=== PATIENT | female | born 1975 | race Caucasian/White ===

== ENCOUNTER 2021-06-05 10:10 | Inpatient (IN) | payer OTHER ==
[2021-06-05 10:58] LABS: Glucose,Whole Blood 345 mg/dL (75-99)
[2021-06-05] MEDS ORDERED: SODIUM CHLORIDE 0.9% 1,000 ML IV STA ×2 (11:15)
--- NOTE | 2021-06-05 11:18 | ED ---
General Adult HPI - General Chief complaint: Upper Respiratory Infection Stated complaint: High Blood Sugar,Fatigue Time Seen by Provider: 06/05/21 10:43 Source: patient Mode of arrival: ambulatory Limitations: no limitations - History of Present Illness Initial comments: 46-year-old female presents to the emergency room for a chief complaint of COVID-19 symptoms. Patient states 4-5 days ago she started to develop symptoms of upper respiratory illness. States she is coughing and congested, has body aches headaches and fevers. Patient states she went to urgent care today after testing positive at home for COVID-19. Patient has a PCR pending from urgent care but had her blood sugar checked and it was 350. Patient states she does not have a history of diabetes but has not seen a doctor in over 10 years. Patient has no other complaints at this time including shortness of breath, chest pain, abdominal pain, nausea or vomiting, or visual changes. - Related Data Home Medications Medication Instructions Recorded Confirmed No Known Home Medications 06/05/21 06/05/21 Allergies Allergy/AdvReac Type Severity Reaction Status Date / Time codeine Allergy Nausea Verified 06/05/21 12:57 Review of Systems ROS Statement: Those systems with pertinent positive or pertinent negative responses have been documented in the HPI. ROS Other: All systems not noted in ROS Statement are negative. Past Medical History Past Medical History: No Reported History History of Any Multi-Drug Resistant Organisms: None Reported Past Surgical History: No Surgical Hx Reported Past Psychological History: No Psychological Hx Reported Smoking Status: Never smoker Past Alcohol Use History: None Reported Past Drug Use History: None Reported General Exam Limitations: no limitations General appearance: alert, in no apparent distress Head exam: Present: atraumatic, normocephalic Eye exam: Present: normal appearance, PERRL, EOMI. Absent: scleral icterus, conjunctival injection ENT exam: Present: normal exam, mucous membranes moist Neck exam: Present: normal inspection, full ROM. Absent: tenderness Respiratory exam: Present: normal lung sounds bilaterally. Absent: respiratory distress, wheezes Cardiovascular Exam: Present: regular rate, normal rhythm, normal heart sounds GI/Abdominal exam: Present: soft, normal bowel sounds. Absent: distended, tenderness Neurological exam: Present: alert Course Vital Signs 06/05/21 06/05/21 10:32 12:55 Temperature 100.4 F H 100.5 F H Pulse Rate 95 Respiratory 22 Rate Blood Pressure 98/60 O2 Sat by Pulse 97 Oximetry Medical Decision Making - Medical Decision Making Vitals are stable. Patient is well-appearing. COVID-19 is positive. Patient given antibody infusion. CMP however does reveal a glucose of 346 and an anion gap of 16. Urinalysis has 3+ ketone's and 4+ glucose. Positive acetone is noted. Case was discussed with Dr. Mcduffie, recommends sliding scale instead of insulin drip. She'll be hydrated and admitted. - Lab Data Result diagrams: 06/05/21 11:20 06/05/21 11:20 Lab Results 06/05/21 06/05/21 06/05/21 Range/Units 10:56 11:20 11:20 WBC 3.6 L (3.8-10.6) k/uL RBC 5.10 (3.80-5.40) m/uL Hgb 15.3 (11.4-16.0) gm/dL Hct 43.8 (34.0-46.0) % MCV 85.8 (80.0-100.0) fL MCH 30.1 (25.0-35.0) pg MCHC 35.0 (31.0-37.0) g/dL RDW 12.4 (11.5-15.5) % Plt Count 147 L (150-450) k/uL MPV 8.0 Neutrophils % 78 % Lymphocytes % 14 % Monocytes % 5 % Eosinophils % 1 % Basophils % 0 % Neutrophils # 2.8 (1.3-7.7) k/uL Lymphocytes # 0.5 L (1.0-4.8) k/uL Monocytes # 0.2 (0-1.0) k/uL Eosinophils # 0.0 (0-0.7) k/uL Basophils # 0.0 (0-0.2) k/uL Sodium (137-145) mmol/L Potassium (3.5-5.1) mmol/L Chloride (98-107) mmol/L Carbon Dioxide (22-30) mmol/L Anion Gap mmol/L BUN (7-17) mg/dL Creatinine (0.52-1.04) mg/dL Est GFR (CKD-EPI)AfAm (>60 ml/min/1.73 sqM) Est GFR (CKD-EPI)NonAf (>60 ml/min/1.73 sqM) Glucose (74-99) mg/dL POC Glucose (mg/dL) 345 H (75-99) mg/dL POC Glu Solar Technician ID Naomie Agrawal Calcium (8.4-10.2) mg/dL Total Bilirubin (0.2-1.3) mg/dL AST (14-36) U/L ALT (4-34) U/L Alkaline Phosphatase (38-126) U/L Total Protein (6.3-8.2) g/dL Albumin (3.5-5.0) g/dL Urine Color Yellow Urine Appearance Clear (Clear) Urine pH 5.5 (5.0-8.0) Ur Specific [place] 1.040 H (1.001-1.035) Urine Protein Trace H (Negative) Urine Glucose (UA) 4+ H (Negative) Urine Ketones 3+ H (Negative) Urine Blood Negative (Negative) Urine Nitrite Negative (Negative) Urine Bilirubin Negative (Negative) Urine Urobilinogen 2.0 (<2.0) mg/dL Ur Leukocyte Esterase Negative (Negative) Acetone, Qual (Negative) Coronavirus (PCR) (Not Detectd) 06/05/21 06/05/21 Range/Units 11:20 11:20 WBC (3.8-10.6) k/uL RBC (3.80-5.40) m/uL Hgb (11.4-16.0) gm/dL Hct (34.0-46.0) % MCV (80.0-100.0) fL MCH (25.0-35.0) pg MCHC (31.0-37.0) g/dL RDW (11.5-15.5) % Plt Count (150-450) k/uL MPV Neutrophils % % Lymphocytes % % Monocytes % % Eosinophils % % Basophils % % Neutrophils # (1.3-7.7) k/uL Lymphocytes # (1.0-4.8) k/uL Monocytes # (0-1.0) k/uL Eosinophils # (0-0.7) k/uL Basophils # (0-0.2) k/uL Sodium 130 L (137-145) mmol/L Potassium 3.6 (3.5-5.1) mmol/L Chloride 94 L (98-107) mmol/L Carbon Dioxide 20 L (22-30) mmol/L Anion Gap 16 mmol/L BUN 11 (7-17) mg/dL Creatinine 0.50 L (0.52-1.04) mg/dL Est GFR (CKD-EPI)AfAm >90 (>60 ml/min/1.73 sqM) Est GFR (CKD-EPI)NonAf >90 (>60 ml/min/1.73 sqM) Glucose 346 H (74-99) mg/dL POC Glucose (mg/dL) (75-99) mg/dL POC Glu Solar Technician ID Calcium 8.7 (8.4-10.2) mg/dL Total Bilirubin 0.9 (0.2-1.3) mg/dL AST 31 (14-36) U/L ALT 23 (4-34) U/L Alkaline Phosphatase 83 (38-126) U/L Total Protein 7.7 (6.3-8.2) g/dL Albumin 4.3 (3.5-5.0) g/dL Urine Color Urine Appearance (Clear) Urine pH (5.0-8.0) Ur Specific [place] (1.001-1.035) Urine Protein (Negative) Urine Glucose (UA) (Negative) Urine Ketones (Negative) Urine Blood (Negative) Urine Nitrite (Negative) Urine Bilirubin (Negative) Urine Urobilinogen (<2.0) mg/dL Ur Leukocyte Esterase (Negative) Acetone, Qual Positive (Negative) Coronavirus (PCR) Detected A (Not Detectd) Disposition Clinical Impression: DKA (diabetic ketoacidosis), COVID-19 Disposition: ADMITTED IP TO THIS HOSP Is patient prescribed a controlled substance at d/c from ED?: No Referrals: None,Stated [Primary Care Provider] - 1-2 days Time of Disposition: 13:26
[2021-06-05 11:30] LABS: Basophils % (A) 0 %; Eosinophils % (A) 1 %; HCT 43.8 % (34.0-46.0); HGB 15.3 gm/dL (11.4-16.0); Lymphocytes # (A) 0.5 k/uL (1.0-4.8); Lymphocytes % (A) 14 %; MCH 30.1 pg (25.0-35.0); MCV 85.8 fL (80.0-100.0); Monocytes # (A) 0.2 k/uL (0-1.0); Monocytes % (A) 5 %; Neutrophils # (A) 2.8 k/uL (1.3-7.7); Neutrophils % (A) 78 %; Platelet Count 147 k/uL (150-450); RDW 12.4 % (11.5-15.5); WBC 3.6 k/uL (3.8-10.6)
[2021-06-05 11:36] LABS: Appearance,Urine Clear (Clear); Bilirubin,Urine Negative (Negative); Blood,Urine Negative (Negative); Color,Urine Yellow; Glucose,Urine (UA) 4+ (Negative); Leukocyte Esterase,Urine Negative (Negative); Nitrite,Urine Negative (Negative); PH, Urine 5.5 (5.0-8.0); Protein,Urine Trace (Negative)
[2021-06-05 11:40] LABS: ALT 23 U/L (4-34); AST 31 U/L (14-36); African American GFR (CKD) >90 (>60 ml/min/1.73 sqM); Albumin 4.3 g/dL (3.5-5.0); Alkaline Phosphatase 83 U/L (38-126); Anion Gap 16 mmol/L; Blood Urea Nitrogen 11 mg/dL (7-17); Calcium 8.7 mg/dL (8.4-10.2); Carbon Dioxide 20 mmol/L (22-30); Chloride 94 mmol/L (98-107); Glucose 346 mg/dL (74-99); Non-African American GFR(CKD) >90 (>60 ml/min/1.73 sqM); Sodium 130 mmol/L (137-145); Total Bilirubin 0.9 mg/dL (0.2-1.3); Total Protein 7.7 g/dL (6.3-8.2)
[2021-06-05 11:42] LABS: Potassium 3.6 mmol/L (3.5-5.1)
[2021-06-05 11:54] LABS: Ketones,Urine 3+ (Negative)
[2021-06-05] MEDS ORDERED: SODIUM CHLORIDE 0.9% 50 ML IVPB ONE (12:00)
[2021-06-05] MEDS ORDERED: CASIRIVIMAB (REGN10933) (EUA) 600 MG, IMDEVIMAB (REGN10987) (EUA) 600 MG in SODIUM CHLO... IVPB ONE (12:00)
[2021-06-05] MEDS ORDERED: INSULIN ASPART (NovoLOG) 100 UNIT/ML VIAL SQ STA (13:24)
[2021-06-05] MEDS ORDERED: NALOXONE 0.4 MG/ML 1 ML VIAL IV PRN ×2 (13:28→14:05)
[2021-06-05] MEDS ORDERED: ONDANSETRON 4 MG/2 ML VIAL IVP PRN (14:05)
[2021-06-05 14:11] LABS: Glucose,Whole Blood 271 mg/dL (75-99)
--- NOTE | 2021-06-05 14:16 | P.HPIM ---
History of Present Illness H&P Date: 06/05/21 Chief Complaint: covid 46-year-old female with no past medical history, does not follow up a PCP presents to the emergency room for a chief complaint of COVID-19 symptoms. Blaine mullen states 4-5 days ago she started to develop symptoms of cough, congestion, last night she started to have dry heaves. No vomiting. Has been having fevers and chills as well as body aches and headaches. She went to urgent care today after testing positive at home for COVID-19. It was also noticed that her blood was 350. Patient states she does not have a history of diabetes but has not seen a doctor in over 10 years. Patient has no other complaints at this time including shortness of breath, chest pain, abdominal pain, nausea or vomiting, or visual changes. Vital signs in the emergency department positive for fever 100.5. Laboratory evaluation in the emergency department revealed WBC count 3.6, platelets 147, sodium 130, chloride 94, bicarb 20, anion gap 16, BUN 11, creatinine 0.5, urinalysis showed 4+ glucose and 3+ ketones. Review of Systems Complete review of system performed. Pertinent positives per HPI, otherwise negative Past Medical History Past Medical History: No Reported History History of Any Multi-Drug Resistant Organisms: None Reported Past Surgical History: No Surgical Hx Reported Past Psychological History: No Psychological Hx Reported Smoking Status: Never smoker Past Alcohol Use History: None Reported Past Drug Use History: None Reported Medications and Allergies Home Medications Medication Instructions Recorded Confirmed Type No Known Home Medications 06/05/21 06/05/21 History Allergies Allergy/AdvReac Type Severity Reaction Status Date / Time codeine Allergy Nausea Verified 06/05/21 12:57 Physical Exam Vitals: Vital Signs Temp Pulse Resp BP Pulse Ox 06/05/21 12:55 100.5 F H 06/05/21 10:32 100.4 F H 95 22 98/60 97 Intake and Output 06/04/21 06/05/21 06/05/21 22:59 06:59 14:59 Other: Weight 115.666 kg Constitutional: No acute distress, conversant, pleasant Eyes:Anicteric sclerae, moist conjunctiva, no lid-lag, PERRLA, ENMT: Oropharynx clear, no erythema, exudates Neck: Supple, FROM, no masses, or JVD, No carotid bruits, No thyromegaly Lungs: Clear to auscultation, Clear to percussion, Normal respiratory effort, no accessory muscle use Cardiovascular: Heart regular in rate and rhythm, No murmurs, gallops, or rubs, No peripheral edema Abdominal: Soft, Nontender, no guarding, rebound or rigidity, Normoactive bowel sounds, No hepatomegaly, No splenomegaly, No palpable mass Skin: Normal temperature, tone, texture, turgor, no induration, No subcutaneous nodules, No rash, lesions, No ulcers Extremities: No digital cyanosis, No clubbing, Pedal pulses intact and symmetrical, Radial pulses intact and symmetrical, No calf tenderness Psychiatric: Alert and oriented to person, place and time, appropriate affect, intact judgement Neuro: Muscles Strength 5/5 in all 4 extremities, Sensation to light touch grossly present throughout, Cranial nerves II-XII grossly intact, no focal sensory deficits Results CBC & Chem 7: 06/05/21 11:20 06/05/21 11:20 Labs: Abnormal Lab Results - Last 24 Hours (Table) 06/05/21 06/05/21 06/05/21 Range/Units 10:56 11:20 11:20 WBC 3.6 L (3.8-10.6) k/uL Plt Count 147 L (150-450) k/uL Lymphocytes # 0.5 L (1.0-4.8) k/uL Sodium (137-145) mmol/L Chloride (98-107) mmol/L Carbon Dioxide (22-30) mmol/L Creatinine (0.52-1.04) mg/dL Glucose (74-99) mg/dL POC Glucose (mg/dL) 345 H (75-99) mg/dL Ur Specific [place] 1.040 H (1.001-1.035) Urine Protein Trace H (Negative) Urine Glucose (UA) 4+ H (Negative) Urine Ketones 3+ H (Negative) Coronavirus (PCR) (Not Detectd) 06/05/21 06/05/21 Range/Units 11:20 11:20 WBC (3.8-10.6) k/uL Plt Count (150-450) k/uL Lymphocytes # (1.0-4.8) k/uL Sodium 130 L (137-145) mmol/L Chloride 94 L (98-107) mmol/L Carbon Dioxide 20 L (22-30) mmol/L Creatinine 0.50 L (0.52-1.04) mg/dL Glucose 346 H (74-99) mg/dL POC Glucose (mg/dL) (75-99) mg/dL Ur Specific [place] (1.001-1.035) Urine Protein (Negative) Urine Glucose (UA) (Negative) Urine Ketones (Negative) Coronavirus (PCR) Detected A (Not Detectd) Assessment and Plan Plan: COVID-19 Monitor for hypoxia No indication for treatment at this time. Hyperglycemia, likely new onset type 2 diabetes Diabetic ketoacidosis Due to mild elevation in the anion gap she'll be treated with subcu insulin. Start Lantus 10 units daily in addition to sliding scale insulin with blood sugar checks every before meals and at bedtime Check A1c Patient counseled regarding exercise, weight loss and diet Admit to inpatient expected length of stay more than 2 midnights.
[2021-06-05] MEDS: INSULIN DETEMIR (LEVEMIR) 100 UNIT/ML SYR SQ SCH (14:17)
[2021-06-05] MEDS: SODIUM CHLORIDE 0.9% 1,000 ML IV SCH ×3 (14:19→22:05)
[2021-06-05] MEDS: INSULIN ASPART (NovoLOG) 100 UNIT/ML VIAL SQ SCH ×2 (18:56→22:03)
[2021-06-05 21:02] LABS: Glucose,Whole Blood 256 mg/dL (75-99)
[2021-06-05] MEDS: ACETAMINOPHEN TAB 325 MG TAB PO PRN (22:03)
[2021-06-06 06:53] LABS: Glucose,Whole Blood 224 mg/dL (75-99)
[2021-06-06] MEDS: INSULIN ASPART (NovoLOG) 100 UNIT/ML VIAL SQ SCH ×4 (06:56→21:04)
[2021-06-06] MEDS: SODIUM CHLORIDE 0.9% 1,000 ML IV SCH ×3 (06:56→21:05)
[2021-06-06] MEDS: INSULIN DETEMIR (LEVEMIR) 100 UNIT/ML SYR SQ SCH (06:58)
[2021-06-06 10:59] LABS: ALT 18 U/L (4-34); AST 36 U/L (14-36); African American GFR (CKD) >90 (>60 ml/min/1.73 sqM); Albumin 3.4 g/dL (3.5-5.0); Alkaline Phosphatase 60 U/L (38-126); Anion Gap 10 mmol/L; Blood Urea Nitrogen 6 mg/dL (7-17); Calcium 7.8 mg/dL (8.4-10.2); Carbon Dioxide 20 mmol/L (22-30); Chloride 103 mmol/L (98-107); Glucose 230 mg/dL (74-99); Magnesium 1.8 mg/dL (1.6-2.3); Non-African American GFR(CKD) >90 (>60 ml/min/1.73 sqM); Phosphorus 2.5 mg/dL (2.5-4.5); Sodium 133 mmol/L (137-145); Total Bilirubin 0.9 mg/dL (0.2-1.3); Total Protein 6.6 g/dL (6.3-8.2)
[2021-06-06 11:08] LABS: Basophils % (A) 0 %; Eosinophils % (A) 0 %; HCT 42.8 % (34.0-46.0); HGB 14.2 gm/dL (11.4-16.0); Lymphocytes % (A) 23 %; MCH 29.1 pg (25.0-35.0); MCHC 33.1 g/dL (31.0-37.0); Mean Platelet Volume 8.2; Monocytes # (A) 0.2 k/uL (0-1.0); Monocytes % (A) 5 %; Neutrophils # (A) 2.9 k/uL (1.3-7.7); Neutrophils % (A) 69 %; Platelet Count 143 k/uL (150-450); RBC 4.87 m/uL (3.80-5.40); RDW 12.9 % (11.5-15.5); WBC 4.1 k/uL (3.8-10.6)
[2021-06-06 11:17] LABS: Potassium 3.4 mmol/L (3.5-5.1)
[2021-06-06] MEDS ORDERED: Potassium Replacement Protocol 1 EACH MISC MISCELLANE PRN (11:48)
[2021-06-06 11:58] LABS: Glucose,Whole Blood 210 mg/dL (75-99)
--- NOTE | 2021-06-06 12:22 | P.PN ---
Subjective Progress Note Date: 06/06/21 Principal diagnosis: Fevers Still having fevers, last one was 102 last night, currently afebrile. She has a cough but denied any shortness of breath. No pain. Objective - Vital Signs Vital signs: Vital Signs Temp 98.6 F 06/06/21 03:12 Pulse 80 06/06/21 03:12 Resp 18 06/06/21 03:12 BP 120/60 06/06/21 03:12 Pulse Ox 96 06/06/21 03:12 Intake & Output 06/05/21 06/06/21 06/06/21 18:59 06:59 18:59 Output Total 0 Balance 0 Weight 115.666 kg 115.666 kg Output: Urine 0 Other: Voiding Method Toilet # Voids 1 - Exam Constitutional: No acute distress, conversant, pleasant Eyes:Anicteric sclerae, moist conjunctiva, no lid-lag, PERRLA, ENMT: Oropharynx clear, no erythema, exudates Neck: Supple, FROM, no masses, or JVD, No carotid bruits, No thyromegaly Lungs: Clear to auscultation, Clear to percussion, Normal respiratory effort, no accessory muscle use Cardiovascular: Heart regular in rate and rhythm, No murmurs, gallops, or rubs, No peripheral edema Abdominal: Soft, Nontender, no guarding, rebound or rigidity, Normoactive bowel sounds, No hepatomegaly, No splenomegaly, No palpable mass Skin: Normal temperature, tone, texture, turgor, no induration, No subcutaneous nodules, No rash, lesions, No ulcers Extremities: No digital cyanosis, No clubbing, Pedal pulses intact and symmetrical, Radial pulses intact and symmetrical, No calf tenderness Psychiatric: Alert and oriented to person, place and time, appropriate affect, intact judgement Neuro: Muscles Strength 5/5 in all 4 extremities, Sensation to light touch grossly present throughout, Cranial nerves II-XII grossly intact, no focal sens ory deficits - Labs CBC & Chem 7: 06/06/21 10:11 06/06/21 10:11 Labs: Abnormal Lab Results - Last 24 Hours (Table) 06/05/21 06/05/21 06/05/21 Range/Units 11:20 14:09 20:58 Plt Count (150-450) k/uL Sodium (137-145) mmol/L Potassium (3.5-5.1) mmol/L Carbon Dioxide (22-30) mmol/L BUN (7-17) mg/dL Creatinine (0.52-1.04) mg/dL Glucose (74-99) mg/dL POC Glucose (mg/dL) 271 H 256 H (75-99) mg/dL Hemoglobin A1c 11.3 H (4.0-6.0) % Calcium (8.4-10.2) mg/dL Albumin (3.5-5.0) g/dL 06/06/21 06/06/21 06/06/21 Range/Units 06:41 10:11 10:11 Plt Count 143 L (150-450) k/uL Sodium 133 L (137-145) mmol/L Potassium 3.4 L (3.5-5.1) mmol/L Carbon Dioxide 20 L (22-30) mmol/L BUN 6 L (7-17) mg/dL Creatinine 0.40 L (0.52-1.04) mg/dL Glucose 230 H (74-99) mg/dL POC Glucose (mg/dL) 224 H (75-99) mg/dL Hemoglobin A1c (4.0-6.0) % Calcium 7.8 L (8.4-10.2) mg/dL Albumin 3.4 L (3.5-5.0) g/dL 06/06/21 Range/Units 11:56 Plt Count (150-450) k/uL Sodium (137-145) mmol/L Potassium (3.5-5.1) mmol/L Carbon Dioxide (22-30) mmol/L BUN (7-17) mg/dL Creatinine (0.52-1.04) mg/dL Glucose (74-99) mg/dL POC Glucose (mg/dL) 210 H (75-99) mg/dL Hemoglobin A1c (4.0-6.0) % Calcium (8.4-10.2) mg/dL Albumin (3.5-5.0) g/dL Assessment and Plan Plan: COVID-19 Monitor for hypoxia No indication for treatment at this time. Fever Secondary to above Tylenol as needed Hyperglycemia, likely new onset type 2 diabetes Diabetic ketoacidosis Continue with Lantus 10 units daily in addition to sliding scale A1c 11.3 We'll also start metformin and linagliptin Patient counseled regarding exercise, weight loss and diet We'll need diabetic education tomorrow Anticipated discharge in a.m., disposition likely home
[2021-06-06] MEDS: POTASSIUM CHLORIDE ER 20 MEQ TAB.ER PO SCH ×2 (12:28→18:25)
[2021-06-06] MEDS: ACETAMINOPHEN TAB 325 MG TAB PO PRN (12:41)
[2021-06-06] MEDS: metFORMIN 500 MG TAB PO SCH ×2 (12:41→18:25)
[2021-06-06 16:48] LABS: Glucose,Whole Blood 163 mg/dL (75-99)
[2021-06-06] MEDS: LINAGLIPTIN 5 MG TABLET PO SCH (18:25)
[2021-06-06 20:35] LABS: Glucose,Whole Blood 123 mg/dL (75-99)
[2021-06-07 05:59] LABS: Glucose,Whole Blood 132 mg/dL (75-99)
[2021-06-07] MEDS: SODIUM CHLORIDE 0.9% 1,000 ML IV SCH ×2 (06:27→12:38)
[2021-06-07] MEDS: INSULIN ASPART (NovoLOG) 100 UNIT/ML VIAL SQ SCH ×2 (06:28→12:53)
[2021-06-07] MEDS: INSULIN DETEMIR (LEVEMIR) 100 UNIT/ML SYR SQ SCH (06:28)
[2021-06-07] MEDS: metFORMIN 500 MG TAB PO SCH (06:28)
[2021-06-07 08:16] LABS: Basophils % (A) 0 %; Eosinophils % (A) 0 %; HCT 42.5 % (34.0-46.0); HGB 14.7 gm/dL (11.4-16.0); Lymphocytes # (A) 0.7 k/uL (1.0-4.8); Lymphocytes % (A) 18 %; MCH 29.7 pg (25.0-35.0); MCHC 34.5 g/dL (31.0-37.0); MCV 86.1 fL (80.0-100.0); Mean Platelet Volume 8.3; Monocytes # (A) 0.2 k/uL (0-1.0); Monocytes % (A) 4 %; Neutrophils # (A) 3.2 k/uL (1.3-7.7); Neutrophils % (A) 77 %; Platelet Count 143 k/uL (150-450); RBC 4.94 m/uL (3.80-5.40); RDW 12.4 % (11.5-15.5); WBC 4.1 k/uL (3.8-10.6)
[2021-06-07 08:19] LABS: ALT 21 U/L (4-34); AST 30 U/L (14-36); African American GFR (CKD) >90 (>60 ml/min/1.73 sqM); Albumin 3.7 g/dL (3.5-5.0); Alkaline Phosphatase 78 U/L (38-126); Anion Gap 11 mmol/L; Blood Urea Nitrogen 6 mg/dL (7-17); Calcium 8.6 mg/dL (8.4-10.2); Carbon Dioxide 22 mmol/L (22-30); Chloride 102 mmol/L (98-107); Glucose 186 mg/dL (74-99); Magnesium 1.8 mg/dL (1.6-2.3); Non-African American GFR(CKD) >90 (>60 ml/min/1.73 sqM); Potassium 3.4 mmol/L (3.5-5.1); Sodium 135 mmol/L (137-145); Total Bilirubin 0.8 mg/dL (0.2-1.3)
[2021-06-07] MEDS: POTASSIUM CHLORIDE ER 20 MEQ TAB.ER PO SCH ×2 (09:44→12:53)
[2021-06-07] MEDS: LINAGLIPTIN 5 MG TABLET PO SCH (09:44)
[2021-06-07] MEDS ORDERED: POTASSIUM CHLORIDE ER 20 MEQ TAB.ER PO STA (10:01)
--- NOTE | 2021-06-07 10:06 | P.DS ---
Providers Date of admission: 06/05/21 13:22 Expected date of discharge: 06/07/21 Attending physician: Marjorie Mcduffie MD Primary care physician: Stated None Hospital Course: 46-year-old female with no past medical history, does not follow up a PCP presents to the emergency room for a chief complaint of COVID-19 symptoms. Patient states 4-5 days ago she started to develop symptoms of cough, congestion, last night she started to have dry heaves. No vomiting. Has been having fevers and chills as well as body aches and headaches. She went to urgent care today after testing positive at home for COVID-19. It was also noticed that her blood was 350. Patient states she does not have a history of diabetes but has not seen a doctor in over 10 years. Patient has no other complaints at this time including shortness of breath, chest pain, abdominal pain, nausea or vomiting, or visual changes. Vital signs in the emergency department positive for fever 100.5. Laboratory evaluation in the emergency department revealed WBC count 3.6, platelets 147, sodium 130, chloride 94, bicarb 20, anion gap 16, BUN 11, creatinine 0.5, urinalysis showed 4+ glucose and 3+ ketones. Upon admission patient was diagnosed with mild DKA, was treated with lantus 10 units daily in addition to sliding scale insulin. A1c came back at 11.3. So patient was started on metformin and linagliptin. She was adviced to eat more vegetables and fruits and stay away from processed food. She was also told to exercise and lose weight. Potassium was on the lower end of normal and she was given some replacements. She continued to have fevers initially in the admission as high as 102. Fever was likely secondary to Covid. She did not drop her O2 saturations however, remained stable on room air. She states that since last night she was having some diarrhea. Patient is currently stable for discharge. He was instructed to follow-up with her primary care physician. Time for discharge 35 minutes. Plan - Discharge Summary New Discharge Prescriptions: New sitaGLIPtin PHOSPHATE [Januvia] 25 mg PO DAILY 30 Days #30 tab metFORMIN HCL [Glucophage] 500 mg PO BID-W/MEALS 30 Days #60 tab Insulin Detemir (Levemir) [Levemir] 10 unit SQ DAILY@0700 30 Days #10 ml Discharge Medication List Insulin Detemir (Levemir) [Levemir] 10 unit SQ DAILY@0700 30 Days #10 ml 06/07/21 [Rx] metFORMIN HCL [Glucophage] 500 mg PO BID-W/MEALS 30 Days #60 tab 06/07/21 [Rx] sitaGLIPtin PHOSPHATE [Januvia] 25 mg PO DAILY 30 Days #30 tab 06/07/21 [Rx] Follow up Appointment(s)/Referral(s): None,Stated [Primary Care Provider] - 1-2 days
[2021-06-07 11:23] LABS: Glucose,Whole Blood 174 mg/dL (75-99)
[2021-06-07 13:28] VITALS: BP 124/70; PULSE 85; RESP 16; TEMP 98.3
== END 2021-06-07 13:34 | disposition home or self-care (01) | DRG 177 ==
LOC: EC 10:10 → 3SCARD 13:22
PROVIDERS: ADMIT Internal Medicine; ATTEND Internal Medicine
PROC: XW033G6 Introduction of REGN-COV2 Monoclonal Antibody into Peripheral Vein, Percutaneous Approach, New Technology Group 6 (ICD-10-PCS; principal; 2021-06-05)
DX: U07.1 COVID-19 (principal); E11.10 Type 2 diabetes mellitus with ketoacidosis without coma; J06.9 Acute upper respiratory infection, unspecified; Z79.4 Long term (current) use of insulin; R50.9 Fever, unspecified
CPT/HCPCS: 36415; 80053; 81003; 82009; 83036; 83735; 84100; 85025; 87635; 96360; 99284